=== PATIENT | male | born 1995 | race Caucasian/White ===

== ENCOUNTER 2019-09-02 12:15 | Emergency (ER) | payer OTHER ==
[~2019-09-02] VITALS: Ht 190.5 cm; Wt 92.5 kg
[~2019-09-02 12:15] MED LIST: LIDOCAINE VISC100 M1 SW&SWALLOW; PENICILLIN V P500 MG PO
[2019-09-02] MEDS ORDERED: NOHOMEMEDICATIONS (12:51)
[2019-09-02 17:47] LABS: ABSOLUTE EOSINOPHILS 0.1 thou/uL (0.0-0.7); ABSOLUTE LYMPHOCYTES 2.4 thou/uL (0.8-5.3); ABSOLUTE MONOCYTES 1.6 thou/uL (0.0-1.2); ABSOLUTE NEUTROPHILS 5.4 thou/uL (1.6-8.1); BASOPHILS 0.5 %; EOSINOPHILS 0.9 %; HEMATOCRIT 46.1 % (42.0-52.0); HEMOGLOBIN 15.9 gm/dL (14.0-18.0); LYMPHOCYTES 25.4 %; MCH 29.9 pg (26.0-34.0); MCHC 34.5 g/dL (28.0-37.0); MCV 86.7 fL (80.0-100.0); MONOCYTES 16.5 %; MPV 7.3 fl. (7.2-11.1); NUCLEATED RBCS 0 /100WBC; PLATELET COUNT* 237 thou/uL (150-400); POLYS 56.7 %; RBC 5.32 mil/uL (4.50-6.00); RDW-CV 13.3 % (10.5-14.5); WBC 9.4 thou/uL (4.0-11.0)
[2019-09-02 17:55] LABS: CALCIUM 8.9 mg/dL (8.5-10.1); POTASSIUM 3.5 mmol/L (3.5-5.1)
[2019-09-02 17:57] LABS: APTT 25.7 Seconds (25.0-31.3); PROTIME 10.5 Seconds (9.20-11.50)
[2019-09-02 18:00] LABS: TOTAL BILIRUBIN 0.6 mg/dL (<0.1-1.0); TOTAL PROTEIN 7.6 g/dL (6.4-8.2)
[2019-09-02 19:15] VITALS: BP 138/70
== END 2019-09-02 19:15 | disposition short-term general hospital (02) ==
LOC: M.ERS 12:15
PROVIDERS: Personal Emergency Response Attendant
DX: M54.5 Low back pain (principal); R93.89 Abnormal findings on diagnostic imaging of other specified body structures; Z86.011 Personal history of benign neoplasm of the brain

== ENCOUNTER 2019-12-31 16:40 | Emergency (ER) | payer OTHER ==
[~2019-12-31] VITALS: Ht 190.5 cm; Wt 93.0 kg
[~2019-12-31 16:40] MED LIST changes: +NOHOMEMEDICATIONS
[2019-12-31] MEDS ORDERED: NORCO 5-325 TA1 EAC1 PO (17:40)
[2019-12-31 17:45] VITALS: BP 134/75
== END 2019-12-31 17:45 | disposition home or self-care (01) ==
LOC: M.ERS 16:40
DX: S06.0X9A Concussion with loss of consciousness of unspecified duration, initial encounter (principal); S02.40EA Zygomatic fracture, right side, initial encounter for closed fracture; W10.9XXA Fall (on) (from) unspecified stairs and steps, initial encounter; Y93.01 Activity, walking, marching and hiking; Y92.69 Other specified industrial and construction area as the place of occurrence of the external cause; Y99.9 Unspecified external cause status